=== PATIENT | female | born 1955 | race Caucasian/White ===

== ENCOUNTER 2016-12-10 11:57 | Emergency (ER) | payer BC ==
[~2016-12-10] VITALS: Ht 177.8 cm; Wt 71.2 kg
--- NOTE | 2016-12-10 12:01 | NUR ---
SERGE ANTHONY, WAS FOUND BY DAUGHTER ALTERED . PLACED ON MONITOR. GOWNED PT. VSS. AWAITING MD ORDER.
[2016-12-10] MEDS ORDERED: IV SET PRIMARY PUMP SET 1 EA INFUS.SET MC ONE (12:14)
[2016-12-10] MEDS ORDERED: IV NS 0.9% 1,000 ML ONE (12:14)
--- NOTE | 2016-12-10 12:19 | NUR ---
AT BEDSIDE FOR EVAL
--- NOTE | 2016-12-10 12:20 | NUR ---
LAC #18 IV ACCESS. BLOOD SAMPLE COLLECTED SENT TO LAB. RAC #18 IV ASSEMBLER FISHING FLOATS NOT PATENT REMOVED
[2016-12-10] MEDS ORDERED: IV NS 0.9% 1,000 ML BAG IV ONE (12:30)
--- NOTE | 2016-12-10 12:33 | NUR ---
PT TAKEN TO CT VIA [facility]
[2016-12-10 12:34] LABS: BASOPHILS # (AUTO) 0.1 /CMM (0.0-0.2); BASOPHILS % (AUTO) 0.6 % (0.0-2.0); EOSINOPHILS # (AUTO) 0.1 /CMM (0.0-0.7); EOSINOPHILS % (AUTO) 0.7 % (0.0-6.0); HEMATOCRIT 39 % (33-45); HEMOGLOBIN 13.7 g/dL (11.5-14.8); LYMPHOCYTES # (AUTO) 0.9 /CMM (0.8-4.8); LYMPHOCYTES % (AUTO) 5.5 % (20.0-44.0); MEAN CORPUSCULAR HEMOGLOBIN 31 PG (26.0-33.0); MEAN CORPUSCULAR HGB CONC 35 g/dl (31.0-36.0); MEAN CORPUSCULAR VOLUME 89 fL (82-100); MONOCYTES # (AUTO) 0.7 /CMM (0.1-1.30); MONOCYTES % (AUTO) 4.3 % (2.0-12.0); NEUTROPHILS # (AUTO) 15.2 /CMM (1.8-8.9); NEUTROPHILS % (AUTO) 88.9 % (43.0-81.0); PLATELET COUNT (AUTO) 181 /CMM (150-450); RDW COEFFICIENT OF VARIATION 12.8 (11.5-15.0); RED BLOOD CELL COUNT(AUTO) 4.43 MIL/uL (4.0-5.2)
[2016-12-10 12:47] LABS: CALCIUM, SERUM 8.4 mg/dL (8.5-10.1); CARBON DIOXIDE 27 mmol/L (21-32); CHLORIDE 103 mmol/L (98-107); CREATININE 0.9 mg/dL (0.6-1.3); GLUCOSE 113 mg/dL (74-106); POTASSIUM 3.4 mmol/L (3.5-5.1); SODIUM SERUM 140 mmol/L (136-145); UREA NITROGEN, BLOOD 19 mg/dL (7-18)
--- NOTE | 2016-12-10 12:49 | NUR ---
CALLED [facility] FOR READ
[2016-12-10 12:53] LABS: ACETAMINOPHEN 0 ug/ml (10-30); ALANINE AMINOTRANSFERASE 20 U/L (12-78); ALBUMIN 4.5 g/dL (3.4-5.0); ALCOHOL, BLOOD < 3 mg/dL (0-0); ALKALINE PHOSPHATASE 76 U/L (46-116); ASPARTATE AMINOTRANSFERASE 28 U/L (15-37); BILIRUBIN,DIRECT 0.1 mg/dL (0.0-0.2); BILIRUBIN,TOTAL 0.9 mg/dL (0.2-1.0); SALICYLATE 1.9 mg/dL (2.8-20.0); TOTAL PROTEIN, SERUM 7.1 g/dL (6.4-8.2)
[2016-12-10 12:55] LABS: TROPONIN I < 0.017 ng/mL (0.00-0.056)
[2016-12-10 12:57] LABS: INR 1.02 (0.87-1.13); PROTHROMBIN TIME 10.6 SECS (9.5-12.7)
[2016-12-10] MEDS ORDERED: ALPR0.5T PO (12:59)
--- NOTE | 2016-12-10 13:01 | NUR ---
LEFT MESSAGE WITH DR MEDELLIN FOR CONSULT
[2016-12-10] MEDS ORDERED: LABETALOL HCL IV 100MG VIAL IV ONE (13:30)
[2016-12-10] MEDS ORDERED: LABETALOL 20 MG/4 ML VIAL ONE (13:32)
--- NOTE | 2016-12-10 13:54 | NUR ---
DR. KING ACCEPTED PATIENT FOR HIGHER LEVEL OF CARE TRANSFER,
--- NOTE | 2016-12-10 13:56 | NUR ---
LEFT MESSAGE WITH [facility] AT [facility] FOR HIGHER LEVEL OF CARE TRANSFER, AWAITING CALL BACK
--- NOTE | 2016-12-10 13:59 | NUR ---
CALLED [facility] FOR ALS TRANSPORT CODE 3 RESPONSE ETA 1 HOUR
--- NOTE | 2016-12-10 14:00 | NUR ---
CALLED [facility] FOR ALS CODE 3 RESPONSE NO ETA AVAILABLE
--- NOTE | 2016-12-10 14:10 | NUR ---
CALLED [facility] FOR ALS RESPONSE ETA 20 MINUTES SET UP ON WILL CALL
--- NOTE | 2016-12-10 14:13 | NUR ---
FACE SHEET AND CLINICAL INFMORATION FAXED TO KRISTOPHER AT [facility], WILL CALL BACK WITH UPDATE
--- NOTE | 2016-12-10 14:29 | NUR ---
KRISTOPHER CALLED FROM [facility] WITH TRANSFER INFORMATION ACCEPTING MD: DR. MEDELLIN ROOM NUMBER: [id number] NUMBER FOR REPORT # [phone]
--- NOTE | 2016-12-10 14:32 | NUR ---
CALLED [facility] BACK ETA [phone]
[2016-12-10 14:34] VITALS: BP 129/69
--- NOTE | 2016-12-10 14:44 | NUR ---
GAVE REPORT TO [facility] .
== END 2016-12-10 15:02 | disposition short-term general hospital (02) ==
LOC: ER 12:00
DX: I61.5 Nontraumatic intracerebral hemorrhage, intraventricular (principal); F41.9 Anxiety disorder, unspecified
CPT/HCPCS: 36415; 70450; 71010; 80048; 80076; 80329; 82962; 84484; 85025; 85730; 93005; 96361; 96374; 99285; A4606; G0480 ×2; J3490; J7030; Z7610; G6039-TC